=== PATIENT | male | born 1990 | race American Indian/Alaskan Native ===

== ENCOUNTER 2016-08-31 10:31 | Emergency (ER) | payer SELFPAY ==
[2016-08-31 11:09] VITALS: BP 166/94
== END 2016-08-31 11:00 | disposition left against medical advice (07) ==
LOC: ED 10:31
DX: I10 Essential (primary) hypertension (principal); Z87.891 Personal history of nicotine dependence; Z53.21 Procedure and treatment not carried out due to patient leaving prior to being seen by health care provider

== ENCOUNTER 2019-01-03 11:48 | Emergency (ER) | payer OTHER ==
[2019-01-03 11:57] VITALS: BP 169/103
--- NOTE | 2019-01-03 11:58 | Emergency Department Report ---
Chief Complaint: Skin Rash Stated Complaint: ALLERGIC REACTION/HANDS Time Seen by Provider: 01/03/19 11:56 - HPI History of Present Illness: This is a 28 y.o. Male that presents that presents to the ER with rash to hands for 2 weeks. PMH: HTN Patient reports being off blood pressure medication for 1 month when he ran out. Denies new symptoms. - Exam Vital Signs: Vital Signs 01/03/19 11:56 Temperature 98.5 F Pulse Rate 68 Respiratory 18 Rate Blood Pressure 169/103 O2 Sat by Pulse 99 Oximetry MSE screening note: Focused history and physical exam performed. Due to findings the following was ordered: This initial assessment/diagnostic orders/clinical plan/treatment(s) is/are subject to change based on patient's health status, clinical progression and re- assessment by fellow clinical providers in the ED. Further treatment and workup at subsequent clinical providers discretion. Patient/guardians urged not to elope from the ED as their condition may be serious if not clinically assessed and managed. Initial orders include: 1- Patient sent to [facility] for further evaluation and treatment ED Disposition for MSE Condition: Stable
[2019-01-03] MEDS ORDERED: THERMAZENE 50 GRAM TP ONE (12:37)
[2019-01-03] MEDS ORDERED: DECADRON IM ONE (12:37)
--- NOTE | 2019-01-03 12:44 | Emergency Department Report ---
ED Rash HPI - HPI Chief Complaint: Skin Rash Stated Complaint: ALLERGIC REACTION/HANDS Time Seen by Provider: 01/03/19 11:56 Duration: year Location: Upper Extremities Suspected Cause: Unknown Rash Symptoms: Yes Peeling, No Itching, No Facial Swelling, No Tongue/Oral Swe lling, No Breathing Difficulties, No Choking Sensation, No Wheezing/Dyspnea, No Blistering, No Malaise, No Myalgias Severity: moderate Other History: Patient is a 28-year-old male who comes to the ER today with a rash on his hands bilaterally for the last year. He states that sometimes it is worse than others. He thinks is an allergic reaction. However, he cannot tell me what he is reacting to. He has no asthma psoriasis or other medical prob lems. He states that he has not seen a market risk analyst or anyone in follow-up. He does come to the ER intermittently for treatment. The patient does not work with chemicals. He has no systemic illness. Patient is ambulatory, nontoxic and talking on the phone during exam. Blood pressure is elevated patient states he's been out of his lisinopril for 30 days. He has no headache shortness of breath or chest pain. ED Review of Systems ROS: Stated complaint: ALLERGIC REACTION/HANDS Other details as noted in HPI Comment: All other systems reviewed and negative Constitutional: denies: fever Eyes: denies: eye pain ENT: denies: ear pain Respiratory: denies: see HPI Endocrine: denies: excessive sweating Gastrointestinal: denies: abdominal pain Musculoskeletal: denies: as per HPI Skin: as per HPI, rash, lesions Neurological: denies: weakness Psychiatric: denies: depression ED Past Medical Hx - Past Medical History Hx Hypertension: Yes (NONCOMPLIANT WITH MEDS) - Surgical History Past Surgical History?: No - Family History Family history: no significant - Social History Smoking Status: Current Every Day Smoker Substance Use Type: None - Medications Home Medications: Home Medications Medication Instructions Recorded Confirmed Last Taken Type Lisinopril/Hydrochlorothiazide 1 each PO DAILY #30 tablet 01/03/19 Unknown Rx [Zestoretic 10-12.5 mg Tablet] Triamcinolone 0.5% [Kenalog 0.5% 1 applic TP BID #1 tube 01/03/19 Unknown Rx CREAM] cephALEXin [Keflex] 500 mg PO Q12HR #20 cap 01/03/19 Unknown Rx Rash Exam - Exam General: Vital signs noted. No distress. Alert and acting appropriately. HEENT: No Periorbital Edema, No Conjuctival Injection, No Chemosis, No Perioral Edema, No Tongue Edema, No Uvular Edema, No Compromised Airway, No Drooling Lungs: Yes Good Air Exchange, No Wheezes, No Ronchi, No Stridor, No Cough, No Labored Respirations, No Retractions, No Use of Accessory Muscles, No Other Abnormal Lung Sounds Heart: Yes Regular, No Murmur Front/Back of Body, Lg (Color): 1 - rash 2 - rash Skin: Yes Tenderness, Yes Erythema, Yes Edema, Yes Encrustations, No Urticarial Rash, No Maculopapular Rash, No Morbilliform rash, No Bulla(e), No Excoriations, No Weeping Other: Positive: Abdomen Normal, Neurologic Normal, Musculoskeletal Normal ED Course Vital Signs 01/03/19 11:56 Temperature 98.5 F Pulse Rate 68 Respiratory 18 Rate Blood Pressure 169/103 O2 Sat by Pulse 99 Oximetry ED Medical Decision Making - Medical Decision Making pt has rash covering both hands. has been there for a year. it is chronic appearing. leathery in nature with areas that are cracking open. no drainage. full rom. rapid cap refill. ulnar, radial and medial nerve intact. radial and ulnar pulses plus 2. medicated with steroid injection SSD with guaze dressing applied chronic wound with open areas will need derm to biopsy no hx asthma/eczema does not work with chemicals no known exposure states gets better with steroids that he gets in ER no fever full ROM no systemic illness or symptoms discussed with pt need to see derm/wound given the open areas and concern for infection wound care provided decadron IM in ER non adherence with bp meds no headache, cp or sob neuro intact will dc home with dc follow up and plan of care being given his lisinopril refill which he has been out of for a month Vital Signs 01/03/19 11:56 Temperature 98.5 F Pulse Rate 68 Respiratory 18 Rate Blood Pressure 169/103 O2 Sat by Pulse 99 Oximetry - Differential Diagnosis chronic rash of psoriasis/dermatitis Critical care attestation.: If time is entered above; I have spent that time in minutes in the direct care of this critically ill patient, excluding procedure time. ED Disposition Clinical Impression: Dermatitis, Elevated blood pressure reading, HTN (hypertension), Medicine refill Disposition: TO HOME OR SELFCARE Is pt being admited?: No Does the pt Need Aspirin: No Condition: Stable Instructions: Eczema (ED), Psoriasis (ED), Hypertension (ED) Additional Instructions: YOU NEED TO SEE DERM OR A WOUND MD TO BIOPSY THIS AREA AND DETERMINE CAUSE AND BEST TREATMENT THIS CAN BE A PROBLEM BECAUSE OF THE OPEN AREAS- THAT CAN CAUSE INFECTION MEDS ORDERED TODAY FOLLOW UP INSTRUCTED SEE REFERRAL BELOW FOLLOW UP WITH PCP FOR MED REFILL FOR BP MONITOR BP REFERRAL BELOW Prescriptions: cephALEXin [Keflex] 500 mg PO Q12HR #20 cap Triamcinolone 0.5% [Kenalog 0.5% CREAM] 1 applic TP BID #1 tube Lisinopril/Hydrochlorothiazide [Zestoretic 10-12.5 mg Tablet] 1 each PO DAILY #30 tablet Referrals: [facility] [Outside] - 3-5 Days BIBIANA QUIÑONES MD [Referring] - 3-5 Days [facility] [Outside] - 3-5 Days Time of Disposition: 12:40
== END 2019-01-03 13:22 | disposition home or self-care (01) ==
LOC: ED 11:48
DX: L30.9 Dermatitis, unspecified (principal); I10 Essential (primary) hypertension; F17.200 Nicotine dependence, unspecified, uncomplicated; Z76.0 Encounter for issue of repeat prescription
CPT/HCPCS: 96372; 99282; J1100